=== PATIENT | male | born 1940 | race Caucasian/White ===

== ENCOUNTER 2019-07-04 17:39 | Observation (INO) | payer MEDICARE, OTHER ==
[2019-07-04] MEDS ORDERED: Metoprolol Tartrate 5 MG/5 ML SDV IVPUSH ONE (18:11)
[2019-07-04] MEDS ORDERED: Famotidine 20 MG/2 ML SDV IVPUSH ONE (18:11)
--- NOTE | 2019-07-04 18:11 | EDM.PDOC ---
ED HPI GENERAL MEDICAL PROBLEM - General Chief Complaint: General Stated Complaint: SYNCOPE, WEAKNESS Time Seen by Provider: 07/04/19 18:00 Source of Information: Reports: Patient, EMS, Family (Daughter), Old Records ( [facility] EMR. No paper hospital chart available.). Denies: EMS Notes Reviewed (Not available at time of dictation) History Limitations: Reports: No Limitations - History of Present Illness INITIAL COMMENTS - FREE TEXT/NARRATIVE: The patient was brought to the emergency room via ambulance with customer solutions architect accompaniment with heart monitor placed with no apparent arrhythmia noted. Note the patient did have a true syncopal episode at his daughter's home at about 17: 15 hours this afternoon while repairing a clogged drain. The patient got up from under the counter, felt dizzy, and then had a syncopal episode falling and hitting his front facial region on the refrigerator. There was some brief loss of consciousness and confusion for about 2 minutes with no true seizure activity , urine/stool incontinence, significant postictal sedation, etc. The patient denies any chest pain/pressure, heart flutter, orthopnea, diaphoresis, paresthesias, recent decreased exercise tolerance, or any other anginal-type symptoms. No recent history of abdominal pain, heartburn, nausea, diarrhea, melena, gross hematochezia, or any food intolerance, including fatty foods, etc.. He denies any gross hematuria, colic, or other UTI symptoms. The patient also denies any recent fever, cough, wheezing, dyspnea, etc.. No history of recent headaches, visual changes, diplopia, or other change in neurological status. He does complain of 4/10 posterior neck pain, which has improved since arrival. Onset: Today, Sudden Onset Date: 07/04/19 Onset Time: 17:15 Duration: Improving Location: Reports: Face, Neck. Denies: Chest, Abdomen, Back, Pelvis, Upper Extremity, Left, Upper Extremity, Right, Lower Extremity, Left, Lower Extremity , Right, Radiates to Quality: Reports: Ache Severity: Mild Improves with: Reports: None Worsens with: Reports: None Context: Reports: Trauma (As above) Associated Symptoms: Reports: Confusion (As above), Malaise, Syncope. 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 [No Known Home Meds] 10/02/15 [History] Past Medical History HEENT History: Reports: Cataract, Hard of Hearing, Impaired Vision, Other (See Below). Denies: Allergic Rhinitis, Glaucoma, Macular Degeneration, Otitis Media , Retinal Detachment Other HEENT History: He wears glasses. Beginning cataracts with no surgery to this point. Moderate to severe presbycusis with no current therapy. Cardiovascular History: Reports: Hypertension, Other (See Below). Denies: Afib , Aneurysm, Arrhythmia, Blood Clots/VTE/DVT, CAD, Heart Failure, Heart Murmur, High Cholesterol, MT, PVD, Syncope Other Cardiovascular History: Hypertension with no previous medical therapy to this point. Patient does not know his cholesterol status. Respiratory History: Reports: None. Denies: Asthma, Bronchitis, Recurrent, COPD , Intubation, Previous, PE, Pneumothorax, Sleep Apnea, TB Gastrointestinal History: Reports: Hepatitis, Other (See Below). Denies: Celiac Disease, Cholelithiasis, Chronic Constipation, Chronic Diarrhea, Fecal Incontinence, Gastritis, GERD, GI Bleed, Inflammatory Bowel Disease, Irritable Bowel Syndrome, Jaundice, Pancreatitis, PUD Other Gastrointestinal History: Unknown type of hepatitis with jaundice at about age 11 Genitourinary History: Reports: BPH. Denies: Acute Renal Failure, Chronic Renal Insuffiency, Renal Calculus, Retention, Urinary, STD, Urinary Incontinence Musculoskeletal History: Reports: Arthritis, Osteoarthritis. Denies: Amputation , Back Pain, Chronic, Fracture, Gout, Neck Pain, Chronic, RA, SLE Neurological History: Reports: None. Denies: Cerebral Aneurysms, Concussion, CVA, Headaches, Chronic, Head Trauma, Migraines, MS, Neuropathy, Peripheral, Parkinson's, Seizure, TIA, Vertigo Psychiatric History: Reports: None. Denies: Abuse, Victim of, ADD, ADHD, Addiction, Anxiety, Depression, Psych Hospitalization(s), PTSD, Suicide Attempt , Suicidal Ideation Endocrine/Metabolic History: Denies: Diabetes, Type I, Diabetes, Type II, Diabetes Mellitus, Type 3c, Hypothyroidism, IDDM Hematologic History: Reports: None. Denies: Anemia, Blood Transfusion(s), Iron Deficiency Immunologic History: Reports: None. Denies: AIDS, HIV, SLE Oncologic (Cancer) History: Denies: Basal Cell Carcinoma, Colon, Hodgkin's Lymphoma, Leukemia, Lymphoma, Malignant Melanoma, Non-Hodgkin's Lymphoma, Prostate, Squamous Cell Carcinoma Dermatologic History: Reports: None. Denies: Eczema, Psoriasis - Infectious Disease History Infectious Disease History: Reports: Measles, Mumps. Denies: C-Difficile, Chicken Pox, Meningitis, Mononucleosis, MRSA, Pertussis (Whooping Cough), Rheumatic Fever, Rubella, Scarlet Fever, Shingles, TB, VRE - Past Surgical History Head Surgeries/Procedures: Reports: None HEENT Surgical History: Reports: Oral Surgery, Other (See Below). Denies: Adenoidectomy, Cataract Surgery, Eye Surgery, Laser Surgery, LASIK, Myringotomy w Tube(s), Naso-Sinus Surgery, Tonsillectomy Other HEENT Surgeries/Procedures: Multiple teeth extractions Cardiovascular Surgical History: Denies: Varicose Respiratory Surgical History: Reports: None. Denies: Thoracentesis GI Surgical History: Reports: Hernia, Inguinal, Other (See Below). Denies: Appendectomy, Cholecystectomy, Colonoscopy, EGD, Hernia, Abdominal, Hernia Repair/Other Other GI Surgeries/Procedures: Left inguinal hernia repair in 2016. Male Surgical History: Reports: None. Denies: Circumcision, TURP- Transurethral Resection of Prostate, Vasectomy Endocrine Surgical History: Reports: None Neurological Surgical History: Reports: None. Denies: C-Spine, Discectomy, Laminectomy, Lumbar Spine, Sacral Spine, Spinal Fusion, Thoracic Spine Musculoskeletal Surgical History: Reports: None. Denies: Arthroscopic Procedure , Carpal Tunnel, Ganglion Cyst, Joint Replacement, ORIF, Shoulder Surgery Oncologic Surgical History: Reports: None Dermatological Surgical History: Reports: None Social & Family History - Family History HEENT: Reports: None. Denies: Glaucoma, Macular Degeneration, Retinal Detachment Cardiac: Reports: Hypertension, Other (See Below). Denies: Afib, Aneurysm, Arrhythmia, Blood Clots/VTE/DVT, Heart Failure, Heart Murmur, High Cholesterol, MT, Pacemaker, PVD/COD, Syncope Other Cardiac Family History: Sister with hypertension. Respiratory: Reports: COPD, Other (See Below). Denies: Asthma, PE, Pneumothorax , Sleep Apnea Other Respiratory Family Hisory: Father with fatal COPD at age 55 with history of tobacco use. GI: Reports: None. Denies: Celiac Disease, Cholelithiasis, Colon Polyps, GERD, GI bleed, Inflammatory Bowel Disease, Irritable Bowel Syndrome, PUD : Reports: None. Denies: Dialysis, Renal Calculus, Renal Disease/ Insufficiency OBGYN: Reports: None. Denies: Endometriosis, Recurrent Spontaneous Musculoskeletal: Reports: None. Denies: Arthritis, Gout, RA, SLE Neurological: Reports: CVA, Other (See Below). Denies: Alzheimers Disease, Dementia, Migraines, MS, Parkinson's, Seizure Other Neurological Family History: Mother with fatal CVA in her 70s. Sister with fatal CVA at age 63. Psychiatric: Denies: Abuse, Victim of, ADD, ADHD, Anxiety, Depression, Psych Hospitalization(s), PTSD, Suicide Attempt Endocrine/Metabolic: Reports: None. Denies: Diabetes, Type I, Diabetes, type II , Diabetes Mellitus, Type 3c, Hypothyroidism, IDDM Hematologic: Reports: None. Denies: Anemia Immunologic: Reports: None. Denies: AIDS, HIV, SLE Dermatologic: Reports: None. Denies: Eczema, Psoriasis Oncologic: Denies: Colon, Hodgkin's Lymphoma, Leukemia, Lymphoma, Non-Hodgkin's Lymphoma, Prostate, Skin - Tobacco Use Smoking Status *Q: Former Smoker Tobacco Use Within Last Twelve Months: No Years of Tobacco use: 13 Packs/Tins Daily: 1 (Smoked between ages 32 and 19.) Used Tobacco, but Quit: Yes Smoking Cessation Information Provided To Patient: No Second Hand Smoke Exposure: No Second Hand Smoke Education Provided: No - Caffeine Use Caffeine Use: Reports: Soda (1 soda per day), Tea (Occasional). Denies: Coffee , Energy Drinks - Alcohol Use Alcohol Use History: No Days Per Week of Alcohol Use: 0 Number of Drinks Per Day: 0 Number of Drinks Per Day Comment: No previous DWIs, problems with alcohol abuse , etc. 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 ED EXAM, GENERAL - Physical Exam Exam: See Below Exam Limited By: No Limitations General Appearance: Alert, WD/WN, No Apparent Distress, Anxious Eye Exam: Bilateral Eye: EOMI, Normal Fundi, Normal Inspection (No nystagmus), PERRL Ears: Normal External Exam, Normal Canal, Normal TMs, Hearing Loss (Moderate to severe bilateral presbycusis) Nose: Normal Inspection, Normal Mucosa, No Blood Throat/Mouth: Normal Gums, Normal Oropharynx, Normal Voice, No Airway Compromise , Other (0.5 cm superficial laceration over the mid superior right lip). No: Normal Teeth (Multiple missing teeth with right lower premolar extraction site noted with additional moderate caries and broken tooth including left upper incisor. No evidence of acute dental injury.), Dysphagia, Inflammation, Perioral Cyanosis Head: Other (No evidence of facial already, crepitation, swelling, or sign of fracture. There are 0.25 superficial abrasion over the lateral right eyebrow). No: Facial Swelling, Facial Tenderness, Sinus Tenderness Neck: Supple, Non-Tender, Full Range of Motion, Carotid Bruit (Bilateral carotid bruits), Other (No neck tenderness by palpation with no spasms present) . No: Lymphadenopathy (L), Lymphadenopathy (R), Tender Lateral, Tender Midline , Thyromegaly Respiratory/Chest: No Respiratory Distress, Lungs Clear, Normal Breath Sounds, No Accessory Muscle Use, Chest Non-Tender. No: Pleural Rub, Retractions Cardiovascular: Normal Peripheral Pulses, No Edema, No Gallop, No JVD, No Murmur , No Rub, Tachycardia (Tachycardic, regular rhythm). No: Gallop/S3, Gallop/S4, Friction Rub Peripheral Pulses: 2+: Radial (L), Radial (R), Dorsalis Pedis (L), Dorsalis Pedis (R) GI/Abdominal: Normal Bowel Sounds, Soft, Non-Tender, No Organomegaly, No Distention, No Abnormal Bruit, No Mass, Pelvis Stable. No: Guarding (Male) Exam: Deferred Rectal (Males) Exam: Deferred Back Exam: Normal Inspection, Full Range of Motion. No: CVA Tenderness (L), CVA Tenderness (R), Muscle Spasm Extremities: Normal Inspection, Normal Range of Motion, Non-Tender, No Pedal Edema, Normal Capillary Refill. No: Matilde's Sign Neurological: Alert, Oriented, CN II-XII Intact, Normal Cognition, Normal Gait, Normal Reflexes (Negative Babinski's, finger to nose, and pronator rotation tests. No evidence of facial paresis, tongue deviation, orthostasis, etc.. Excellent reverse thought processes.), No Motor/Sensory Deficits Psychiatric: Normal Affect, Normal Mood Skin Exam: Wound/Incision (As above additional superficial 0.25 cm abrasion/ laceration over the mid outer superior right lip). No: Diaphoretic, Ecchymosis Lymphatic: No Adenopathy ED GENERAL MEDICAL PROCEDURES - Laceration/Wound Repair Right Upper Mouth Lac/wound length in cm: 0.5 Appearance: Subcutaneous, Linear, Clean Distal NVT: Neuro & Vascular Intact, No Tendon Injury Anesthetic Type: Local Local Anesthesia - Lidocaine (Xylocaine): 1% Plain Local Anesthetic Volume: 3cc Skin Prep: Providone-Iodine (Betadine) Saline irrigation (cc's): 0 Exploration/Debridement/Repair: Wound Explored, In a Bloodless Field, Explored to Base, No Foreign Material Found Closed with: Sutures Suture Size: 4-0 # of Sutures: 2 Suture Type: Interrupted, Simple, Other (Chromic) Drain Placement: No Sterile Dressing Applied: None Tetanus Status Addressed: Yes Complications: No EKG INTERPRETATION EKG Date: 07/04/19 Time: 17:52 Rhythm: Other (Sinus tachycardia with occasional PACs) Rate (Beats/Min): 115 [place]: Normal (Left cardiac axis) P-Wave: Present (Mild diffuse biphasic P waves with poor R-wave progression in the anterior leads) QRS: Normal (0.09 seconds) ST-T: Normal QT: Normal MS/PQ Interval: 0.13 seconds representing a short MS interval with no delta waves noted. Comparison: NA - No Prior EKG EKG Interpretation Comments: 1. No acute ischemic changes 2. Sinus tachycardia with PACs 3. Short MS interval Course - Vital Signs Last Recorded V/S: Last Vital Signs Temp 36.8 C 07/04/19 17:40 Pulse 91 07/04/19 20:31 Resp 19 07/04/19 20:31 BP 147/83 H 07/04/19 20:31 Pulse Ox 96 07/04/19 20:31 Vital Signs - 24 hr 07/04/19 07/04/19 07/04/19 17:40 17:54 18:09 Temperature [ 36.8 C Temporal] Pulse, Peripheral Pulse, 118 H 112 H 107 H Peripheral [ Pulse Oximetry] Respiratory 19 21 H 20 Rate Blood Pressure Blood Pressure 137/81 137/84 145/78 H [Right Upper Arm] O2 Sat by Pulse 100 98 99 Oximetry 07/04/19 07/04/19 07/04/19 18:24 18:25 18:39 Temperature [ Temporal] Pulse, 102 H Peripheral Pulse, 109 H 90 Peripheral [ Pulse Oximetry] Respiratory 19 19 Rate Blood Pressure 145/78 H Blood Pressure 157/90 H 154/90 H [Right Upper Arm] O2 Sat by Pulse 99 99 Oximetry 07/04/19 07/04/19 07/04/19 18:58 19:45 20:01 Temperature [ Temporal] Pulse, Peripheral Pulse, 89 85 87 Peripheral [ Pulse Oximetry] Respiratory 16 19 21 H Rate Blood Pressure Blood Pressure 149/87 H 144/84 H 151/94 H [Right Upper Arm] O2 Sat by Pulse 98 99 96 Oximetry 07/04/19 07/04/19 20:16 20:31 Temperature [ Temporal] Pulse, Peripheral Pulse, 82 91 Peripheral [ Pulse Oximetry] Respiratory 18 19 Rate Blood Pressure Blood Pressure 150/86 H 147/83 H [Right Upper Arm] O2 Sat by Pulse 97 96 Oximetry - Orders/Labs/Meds Orders: Active Orders 24 hr Category Date Time Status Cardiac Monitoring [RC] . DIRECTED Care 07/04/19 18:11 Active EKG Documentation Completion [RC] ASDIRECTED Care 07/04/19 18:00 Active Oxygen Therapy, ED [RC] PRN Care 07/04/19 18:11 Active Peripheral IV Care [RC] . DIRECTED Care 07/04/19 18:11 Active Pulse Oximetry [RC] CONTINUOUS Care 07/04/19 18:11 Active Up With Assistance [RC] PFP Care 07/04/19 18:11 Active Vital Signs [RC] PFP Care 07/04/19 18:11 Active Nothing per Oral Now Diet [DIET] Diet 07/04/19 Breakfast Active Cervical Spine Min 4V [CR] Stat Exams 07/04/19 18:50 Taken Chest 1V Frontal [CR] Stat Exams 07/04/19 18:11 Taken Chest PE [Ang Chest] [CT] Stat Exams 07/04/19 18:50 Taken Head wo Cont [CT] Stat Exams 07/04/19 18:50 Taken PROLACTIN [REF] Stat Lab 07/04/19 18:13 Ordered Sodium Chloride 0.9% [Saline Flush] Med 07/04/19 18:11 Active 10 ml FLUSH ASDIRECTED PRN Obtain Past Medical Record [OM.PC] Urgent Oth 07/04/19 18:11 Active Peripheral IV Insertion Adult [OM.PC] Stat Oth 07/04/19 18:11 Ordered Resuscitation Status Stat Resus Stat 07/04/19 18:11 Ordered Medication Orders Sodium Chloride (Saline Flush) 10 ml FLUSH ASDIRECTED PRN PRN Reason: Keep Vein Open Last Admin: 07/04/19 18:39 Dose: 10 ml Admin: 07/04/19 18:26 Dose: 10 ml Labs: Laboratory Tests 07/04/19 07/04/19 07/04/19 Range/Units 18:00 18:00 18:00 WBC 11.3 H (4.0-10.2) K/uL RBC 4.53 (4.33-5.41) M/uL Hgb 13.9 (13.1-16.8) g/dL Hct 41.9 (39.0-49.0) % MCV 92.5 (84.0-98.0) fL MCH 30.7 (28.2-33.3) pg MCHC 33.2 (31.7-36.0) g/dL RDW 12.9 (11.2-14.1) % Plt Count 247 (150-350) K/uL Neut % (Auto) 76.6 (45.0-80.0) % Lymph % (Auto) 13.5 (10.0-50.0) % [place] % (Auto) 8.2 (2.0-14.0) % Eos % (Auto) 1.3 (0.0-5.0) % Baso % (Auto) 0.4 (0.0-2.0) % Neut # (Auto) 8.65 H (1.40-7.00) K/uL Lymph # (Auto) 1.52 (0.50-3.50) K/uL [place] # (Auto) 0.93 (0.00-1.00) K/uL Eos # (Auto) 0.15 (0.00-0.50) K/uL Baso # (Auto) 0.04 (0.00-0.20) K/uL PT 10.3 (9.5-12.0) SEC INR 1.0 APTT 19.0 L (21.0-31.3) SEC D-Dimer, Quantitative 1370 H (0-400) ng/mL Sodium (136-145) mmol/L Potassium (3.5-5.1) mmol/L Chloride (98-107) mmol/L Carbon Dioxide (21.0-32.0) mmol/L BUN (7-18) mg/dL Creatinine (0.51-1.17) mg/dL Est Cr Clr Drug Dosing mL/min Estimated GFR (MDRD) mL/min Glucose (74-106) mg/dL Lactic Acid (0.4-2.0) mmol/L Uric Acid (2.6-7.2) mg/dL Calcium (8.5-10.1) mg/dL Magnesium (1.8-2.4) mg/dL Total Bilirubin (0.2-1.0) mg/dL AST (15-37) U/L ALT (12-78) U/L Alkaline Phosphatase (46-116) IU/L Creatine Kinase (26-308) U/L Creatine Kinase Index (0.0-2.5) % CK-MB (CK-2) (0.00-3.60) ng/mL Troponin I (0.000-0.056) ng/mL NT-Pro-B Natriuret Pep (0-125) pg/mL Total Protein (6.4-8.2) g/dL Albumin (3.4-5.0) g/dL TSH, Ultra Sensitive (0.358-3.740) mIU/mL 07/04/19 07/04/19 Range/Units 18:00 18:00 WBC (4.0-10.2) K/uL RBC (4.33-5.41) M/uL Hgb (13.1-16.8) g/dL Hct (39.0-49.0) % MCV (84.0-98.0) fL MCH (28.2-33.3) pg MCHC (31.7-36.0) g/dL RDW (11.2-14.1) % Plt Count (150-350) K/uL Neut % (Auto) (45.0-80.0) % Lymph % (Auto) (10.0-50.0) % [place] % (Auto) (2.0-14.0) % Eos % (Auto) (0.0-5.0) % Baso % (Auto) (0.0-2.0) % Neut # (Auto) (1.40-7.00) K/uL Lymph # (Auto) (0.50-3.50) K/uL [place] # (Auto) (0.00-1.00) K/uL Eos # (Auto) (0.00-0.50) K/uL Baso # (Auto) (0.00-0.20) K/uL PT (9.5-12.0) SEC INR APTT (21.0-31.3) SEC D-Dimer, Quantitative (0-400) ng/mL Sodium 145 (136-145) mmol/L Potassium 3.6 (3.5-5.1) mmol/L Chloride 109 H (98-107) mmol/L Carbon Dioxide 23.5 (21.0-32.0) mmol/L BUN 21 H (7-18) mg/dL Creatinine 1.21 H (0.51-1.17) mg/dL Est Cr Clr Drug Dosing 51.13 mL/min Estimated GFR (MDRD) 58 mL/min Glucose 116 H (74-106) mg/dL Lactic Acid 2.0 (0.4-2.0) mmol/L Uric Acid 5.2 (2.6-7.2) mg/dL Calcium 8.8 (8.5-10.1) mg/dL Magnesium 1.6 L (1.8-2.4) mg/dL Total Bilirubin 0.3 (0.2-1.0) mg/dL AST 22 (15-37) U/L ALT 20 (12-78) U/L Alkaline Phosphatase 144 H (46-116) IU/L Creatine Kinase 236 (26-308) U/L Creatine Kinase Index 0.8 (0.0-2.5) % CK-MB (CK-2) 1.90 (0.00-3.60) ng/mL Troponin I 0.020 (0.000-0.056) ng/mL NT-Pro-B Natriuret Pep 338 H (0-125) pg/mL Total Protein 7.2 (6.4-8.2) g/dL Albumin 3.6 (3.4-5.0) g/dL TSH, Ultra Sensitive 2.895 (0.358-3.740) mIU/mL Meds: Medications Generic Name Dose Route Start Last Admin Trade Name Freq PRN Reason Stop Dose Admin Sodium Chloride 10 ml 07/04/19 18:11 07/04/19 18:39 Saline Flush FLUSH 10 ml ASDIRECTED PRN Administration Keep Vein Open Discontinued Medications Generic Name Dose Route Start Last Admin Trade Name Freq PRN Reason Stop Dose Admin Famotidine 40 mg 07/04/19 18:11 07/04/19 18:25 Pepcid IVPUSH 07/04/19 18:12 40 mg ONETIME ONE Administration Iopamidol 100 ml 07/04/19 18:58 07/04/19 19:57 Isovue-370 (76%) IVPUSH 07/04/19 18:59 100 ml ONETIME ONE Administration Lidocaine HCl 5 ml 07/04/19 18:15 07/04/19 18:24 Xylocaine-Mpf 1% INJECT 07/04/19 18:16 5 ml ONETIME ONE Administration Metoprolol Tartrate 2.5 mg 07/04/19 18:11 07/04/19 18:25 Lopressor IVPUSH 07/04/19 18:12 2.5 mg ONETIME ONE Administration - Radiology Interpretation Free Text/Narrative:: Hvac Estimator shows sinus tachycardia with heart rate in the 110s with only very occasional PACs with improved heart rate in the 80s to 90s after low-dose IV Lopressor with no other significant ectopy or arrhythmia. Chest x-ray shows moderate pulmonary obstructive disease with possible pulmonary hypertension and/or centralized CHF. No pulmonary infiltrates, cardiomegaly, pneumothorax, rib fractures, etc. X-rays of the C-spine, complete including oblique views, shows moderate osteoarthritic changes with no evidence of fracture, dislocation, etc. Telephone consultation at 20:36 hours with the radiology department at [facility]. Preliminary verbal report of CTA of the chest using PE protocol with additional noncontrast CT scan of the head were negative for any acute findings including PE, CVA, etc. CT Results Date: 07/04/19 CT Results Time: 20:36 Departure - Departure Time of Disposition: 21:00 Disposition: Refer to Observation Condition: Good Clinical Impression: PAC (premature atrial contraction), D-dimer, elevated, Hypomagnesemia, Neck pain, Laceration, Renal insufficiency, BPH (benign prostatic hyperplasia) Facial contusion Qualifiers: Encounter type: initial encounter Qualified Code(s): S00.83XA - Contusion of other part of head, initial encounter Syncope Qualifiers: Syncope type: unspecified Qualified Code(s): R55 - Syncope and collapse Hypertension Qualifiers: Hypertension type: essential hypertension Qualified Code(s): I10 - Essential ( primary) hypertension Osteoarthritis Qualifiers: Osteoarthritis location: multiple joints Osteoarthritis type: primary Qualified Code(s): M15.0 - Primary generalized (osteo)arthritis - Discharge Information *PRESCRIPTION DRUG MONITORING PROGRAM REVIEWED*: Not Applicable *COPY OF PRESCRIPTION DRUG MONITORING REPORT IN PATIENT ROSA MARIA: Not Applicable Referrals: PCP,None [Primary Care Provider] - Forms: ED Department Discharge Care Plan Goals: See plan Sepsis Event Note - Evaluation Sepsis Screening Result: No Definite Risk - Focused Exam Vital Signs: Vital Signs Temp Pulse Pulse Resp BP BP Pulse Ox 07/04/19 20:31 91 19 147/83 H 96 07/04/19 20:16 82 18 150/86 H 97 07/04/19 20:01 87 21 H 151/94 H 96 07/04/19 19:45 85 19 144/84 H 99 07/04/19 18:58 89 16 149/87 H 98 07/04/19 18:39 90 19 154/90 H 99 07/04/19 18:25 102 H 145/78 H 07/04/19 18:24 109 H 19 157/90 H 99 07/04/19 18:09 107 H 20 145/78 H 99 07/04/19 17:54 112 H 21 H 137/84 98 07/04/19 17:40 36.8 C 118 H 19 137/81 100 Date Exam was Performed: 07/04/19 Time Exam was Performed: 21:02 - Problem List & Annotations (1) Syncope SNOMED Code(s): 986854463 Code(s): R55 - SYNCOPE AND COLLAPSE Status: Acute Priority: High Current Visit: Yes Onset Date: 07/04/19 Annotation/Comment:: True witnessed syncopal episode by his daughter as above. No chest pain or anginal type symptoms, however chest pain protocol was initiated in the emergency room with exception of aspirin and Brilinta. Neurological checks with vitals. Echocardiogram and carotid artery Doppler studies will be conducted tomorrow with mild carotid bruits by clinical exam today. Note mildly elevated BNP possibly secondary to renal insufficiency. Take enzymes are otherwise normal with only minimal change in troponin I likely secondary to his renal disease and /or borderline CHF. Mild leukocytosis likely secondary to stress reaction with no recent fever, cough, etc. Qualifiers: Syncope type: unspecified Qualified Code(s): R55 - Syncope and collapse (2) D-dimer, elevated SNOMED Code(s): 384916245 Code(s): R79.89 - OTHER SPECIFIED ABNORMAL FINDINGS OF BLOOD CHEMISTRY Status: Acute Priority: High Current Visit: Yes Onset Date: 07/04/19 Annotation/Comment:: CTA of the chest results as above. Venous Doppler studies to be conducted in the a.m. ET of the head was normal, however no subcutaneous Lovenox for now secondary to head contusion/injury as above. No direct clinical evidence of DVT or PE, however. (3) Facial contusion SNOMED Code(s): 632439986 Code(s): S00.83XA - CONTUSION OF OTHER PART OF HEAD, INITIAL ENCOUNTER Status: Acute Priority: High Current Visit: Yes Onset Date: 07/04/19 Annotation/Comment:: Note mild facial contusion with no evidence of facial fractures, etc. Note small lacerations as above/below with only inner lip laceration requiring repair. Qualifiers: Encounter type: initial encounter Qualified Code(s): S00.83XA - Contusion of other part of head, initial encounter (4) Hypertension SNOMED Code(s): 07042036 Code(s): I10 - ESSENTIAL (PRIMARY) HYPERTENSION Status: Chronic Priority : Medium Current Visit: Yes Annotation/Comment:: Patient has not wanted to have medical therapy for his hypertension in the past. Blood pressure somewhat elevated in the emergency room. Initiate low-dose Toprol XL on admission. IV Lopressor given in the emergency room. Qualifiers: Hypertension type: essential hypertension Qualified Code(s): I10 - Essential (primary) hypertension (5) Hypomagnesemia SNOMED Code(s): 008935048 Code(s): E83.42 - HYPOMAGNESEMIA Status: Acute Priority: Medium Current Visit: Yes Onset Date: 07/04/19 Annotation/Comment:: Initiate magnesium oxide therapy on admission (6) PAC (premature atrial contraction) SNOMED Code(s): 055051457 Code(s): I49.1 - ATRIAL PREMATURE DEPOLARIZATION Status: Acute Priority: High Current Visit: Yes Onset Date: 07/04/19 Annotation/Comment:: Newly diagnosed PACs and sinus tachycardia with overall good results with low-dose IV Lopressor as above. Observe for now. (7) Laceration SNOMED Code(s): 388374604 Code(s): BGZ5199 - Status: Acute Priority: High Current Visit: Yes Onset Date: 07/04/19 Annotation/Comment:: Excellent results with laceration repair of the inner lip as above. Last Td on 12/25/10, which was confirmed by the ER nurse thru [facility]. (8) Neck pain SNOMED Code(s): 95366017 Code(s): M54.2 - CERVICALGIA Status: Acute Priority: High Current Visit : Yes Onset Date: 07/04/19 Annotation/Comment:: Symptoms improved with ice packs and emergency room. Observe for now. Note x-ray results as above. No evidence of significant injury. (9) Osteoarthritis SNOMED Code(s): 549431445 Code(s): M19.90 - UNSPECIFIED OSTEOARTHRITIS, UNSPECIFIED SITE Status: Chronic Priority: Medium Current Visit: Yes Annotation/Comment:: Otherwise stable by history with OTC meds not normally required. Qualifiers: Osteoarthritis location: multiple joints Osteoarthritis type: primary Qualified Code(s): M15.0 - Primary generalized (osteo)arthritis (10) Renal insufficiency SNOMED Code(s): 162211271, 903550488 Code(s): N28.9 - DISORDER OF KIDNEY AND URETER, UNSPECIFIED Status: Acute Priority: Medium Current Visit: Yes Onset Date: 07/04/19 Annotation/ Comment:: Mild. Observe for now. (11) BPH (benign prostatic hyperplasia) SNOMED Code(s): 649193756 Code(s): N40.0 - BENIGN PROSTATIC HYPERPLASIA WITHOUT LOWER URINRY TRACT SYMP Status: Chronic Priority: Medium Current Visit: Yes Annotation/ Comment:: He denies urinary retention although significant urine frequency in the emergency room today. UA collected just prior to admission. Consider urology referral, Proscar therapy, etc. Qualifiers: Lower urinary tract symptom presence: symptoms present Lower urinary tract symptom detail: urinary frequency Qualified Code(s): N40.1 - Benign prostatic hyperplasia with lower urinary tract symptoms; R35.0 - Frequency of micturition - Problem List Review Problem List Initiated/Reviewed/Updated: Yes - My Orders Last 24 Hours: My Active Orders 07/04/19 18:00 EKG Documentation Completion [RC] ASDIRECTED 07/04/19 18:11 Cardiac Monitoring [RC] . DIRECTED Oxygen Therapy, ED [RC] PRN Peripheral IV Care [RC] . DIRECTED Pulse Oximetry [RC] CONTINUOUS Up With Assistance [RC] PFP Vital Signs [RC] PFP Chest 1V Frontal [CR] Stat Sodium Chloride 0.9% [Saline Flush] 10 ml FLUSH ASDIRECTED PRN Obtain Past Medical Record [OM.PC] Urgent Peripheral IV Insertion Adult [OM.PC] Stat Resuscitation Status Stat 07/04/19 18:13 PROLACTIN [REF] Stat 07/04/19 18:50 Cervical Spine Min 4V [CR] Stat Chest PE [Ang Chest] [CT] Stat Head wo Cont [CT] Stat 07/04/19 Breakfast Nothing per Oral Now Diet [DIET] - Assessment/Plan Admission H&P: Please use this note as an admission H&P Last 24 Hours: My Active Orders 07/04/19 18:00 EKG Documentation Completion [RC] ASDIRECTED 07/04/19 18:11 Cardiac Monitoring [RC] . DIRECTED Oxygen Therapy, ED [RC] PRN Peripheral IV Care [RC] . DIRECTED Pulse Oximetry [RC] CONTINUOUS Up With Assistance [RC] PFP Vital Signs [RC] PFP Chest 1V Frontal [CR] Stat Sodium Chloride 0.9% [Saline Flush] 10 ml FLUSH ASDIRECTED PRN Obtain Past Medical Record [OM.PC] Urgent Peripheral IV Insertion Adult [OM.PC] Stat Resuscitation Status Stat 07/04/19 18:13 PROLACTIN [REF] Stat 07/04/19 18:50 Cervical Spine Min 4V [CR] Stat Chest PE [Ang Chest] [CT] Stat Head wo Cont [CT] Stat 07/04/19 Breakfast Nothing per Oral Now Diet [DIET] Assessment:: As above. Plan: As above. Extensive precautions were given to the patient and his family, who are in agreement with the treatment plan. The patient's condition is stable enough for observation status and general supervision.
[2019-07-04] MEDS: Sodium Chloride 0.9% 10 ML Syringe FLUSH PRN ×2 (18:26→18:39)
[2019-07-04] MEDS ORDERED: Iopamidol 755 Mg/ML 100 ML Bottle IVPUSH ONE (18:58)
[2019-07-04] MEDS ORDERED: Temazepam 15 MG Cap PO PRN (21:08)
[2019-07-04] MEDS ORDERED: Acetaminophen 325 MG Tab PO PRN (21:08)
[2019-07-04] MEDS ORDERED: Sodium Chloride 0.9% 10 ML Syringe FLUSH PRN (21:08)
[2019-07-04] MEDS ORDERED: Metoprolol Succinate 25 MG Tab.ER PO SCH (21:14)
[2019-07-04] MEDS ORDERED: Magnesium Oxide 400 MG Tab PO SCH (21:15)
[2019-07-04] MEDS ORDERED: Diphtheria,Pertussis(Acell),Tetanus Vaccine 0.5 ML SDV IM ONE (21:27)
[2019-07-04] MEDS ORDERED: Pneumococcal Polyvalent-23 Vaccine 0.5 ML SDV IM ONE (21:27)
[2019-07-04] MEDS ORDERED: Enoxaparin 80 MG/0.8 ML Syringe SUBCUT SCH (23:30)
[2019-07-05 07:45] LABS: HEMOGLOBIN A1C 5.4 % (4.3-5.7)
[2019-07-05 08:17] LABS: CHLORIDE,CL 110 mmol/L (98-107); SODIUM,NA 145 mmol/L (136-145)
[2019-07-05 09:31] VITALS: BP 150/88; PULSE 67
[2019-07-05] MEDS ORDERED: Furosemide 40 MG/4 ML VIAL IVPUSH ONE (09:50)
--- NOTE | 2019-07-05 09:50 | PCM.DCSUM1 ---
Discharge Summary - Hospital Course HPI Initial Comments: See emergency room note/admission H&P Brief History: See emergency room note/admission H&P Diagnosis: Stroke: No Modified [place] Scale: No Symptoms at All Modified [place] Scale Score: 0 - Discharge Data Discharge Date: 07/05/19 Discharge Disposition: DC/Tfer to Acute Hospital 02 Condition: Good - Referral to Home Health Primary Care Physician: PCP None - Discharge Diagnosis/Problem(s) (1) Syncope SNOMED Code(s): 195914340 ICD Code: R55 - SYNCOPE AND COLLAPSE Status: Acute Priority: High Current Visit: Yes Onset Date: 07/04/19 Problem Details: Note elevated troponin I and CK yesterday evening with normal CK-MB and cardiac index. Patient has not had any chest pain or other anginal type symptoms throughout this hospitalization with negative serial EKGs 3. Note improvement of patient' s d-dimer elevation and troponin I with initiation of subcutaneous Lovenox yesterday evening. Telephone consultation at 09:20 hours this morning with Dr. Solis, environmental sampling technician at [facility], , who does accept the patient for direct admission through the hospitalist service for further treatment and evaluation and probable heart catheterization tomorrow. Telephone consultation at 09:[address] Teixeira, hospitalist at [facility], who does accept the patient for direct admission. No further treatment recommendations given by either accepting providers. Ambulance transfer with [employer]. Note witnessed syncopal episode by his daughter as per emergency room note. No chest pain or anginal type symptoms prior to arrival, however chest pain protocol was initiated in the emergency room with exception of aspirin and Brilinta. Neurological checks with vitals. Echocardiogram this morning was essentially normal by preliminary read from erp technical lead. Carotid artery Doppler had been scheduled for today with mild carotid bruits by clinical exam on admission, however this could not be performed prior to patient 's transfer. Note progressive moderately elevated BNP with only mild initial BNP elevation possibly secondary to renal insufficiency, although normal renal function this morning. Mild leukocytosis likely secondary to stress reaction on admission, which has resolved this morning, with no recent fever, cough, etc. Note the glycosylated hemoglobin and fasting lipid profile were normal this morning. Qualifiers: Syncope type: unspecified Qualified Code(s): R55 - Syncope and collapse (2) D-dimer, elevated SNOMED Code(s): 181674111 ICD Code: R79.89 - OTHER SPECIFIED ABNORMAL FINDINGS OF BLOOD CHEMISTRY Status: Acute Priority: High Current Visit: Yes Onset Date: 07/04/19 Problem Details: D-dimer elevation improved this morning after subcutaneous Lovenox therapy was given as above. CTA of the chest results were negative for PE. Venous Doppler studies of the lower extremities were also ordered for today , however these could not be conducted prior to patient transfer. CT of the head was normal on admission, however no subcutaneous Lovenox was given initially secondary to head contusion/injury as above. No direct clinical evidence of DVT or PE, however. (3) Facial contusion SNOMED Code(s): 153213132 ICD Code: S00.83XA - CONTUSION OF OTHER PART OF HEAD, INITIAL ENCOUNTER Status: Acute Priority: High Current Visit: Yes Onset Date: 07/04/19 Problem Details: Note mild facial contusion with no evidence of facial fractures , etc. Note small lacerations as above/below with only inner lip laceration requiring repair. Note progressive CK elevation, however no direct evidence of rhabdomyolysis. Qualifiers: Encounter type: initial encounter Qualified Code(s): S00.83XA - Contusion of other part of head, initial encounter (4) Hypertension SNOMED Code(s): 28931643 ICD Code: I10 - ESSENTIAL (PRIMARY) HYPERTENSION Status: Chronic Priority : Medium Current Visit: Yes Problem Details: Patient has not wanted to have medical therapy for his hypertension in the past. Blood pressure somewhat elevated in the emergency room. Initiated low-dose Toprol XL on admission. IV Lopressor was given in the emergency room. Qualifiers: Hypertension type: essential hypertension Qualified Code(s): I10 - Essential (primary) hypertension (5) Hypomagnesemia SNOMED Code(s): 489519115 ICD Code: E83.42 - HYPOMAGNESEMIA Status: Acute Priority: Medium Current Visit: Yes Onset Date: 07/04/19 Problem Details: Initiated magnesium oxide therapy on admission. Continue to observe closely by accepting providers. (6) PAC (premature atrial contraction) SNOMED Code(s): 998664405 ICD Code: I49.1 - ATRIAL PREMATURE DEPOLARIZATION Status: Acute Priority : High Current Visit: Yes Onset Date: 07/04/19 Problem Details: Newly diagnosed PACs and sinus tachycardia with overall good results with low-dose IV Lopressor as above. Observe for now. (7) Laceration SNOMED Code(s): 892666217 ICD Code: CVM4495 - Status: Acute Priority: High Current Visit: Yes Onset Date: 07/04/19 Problem Details: Excellent results with laceration repair of the inner lip as above. Last Td on 12/25/10, which was confirmed by the ER nurse thru [facility]. (8) Neck pain SNOMED Code(s): 05058244 ICD Code: M54.2 - CERVICALGIA Status: Acute Priority: High Current Visit: Yes Onset Date: 07/04/19 Problem Details: Symptoms improved with ice packs and emergency room. Observe for now. Note x-ray results as above. No evidence of significant injury. (9) Osteoarthritis SNOMED Code(s): 872549021 ICD Code: M19.90 - UNSPECIFIED OSTEOARTHRITIS, UNSPECIFIED SITE Status: Chronic Priority: Medium Current Visit: Yes Problem Details: Otherwise stable by history with OTC meds not normally required. Qualifiers: Osteoarthritis location: multiple joints Osteoarthritis type: primary Qualified Code(s): M15.0 - Primary generalized (osteo)arthritis (10) Renal insufficiency SNOMED Code(s): 167791249, 880175025 ICD Code: N28.9 - DISORDER OF KIDNEY AND URETER, UNSPECIFIED Status: Acute Priority: Medium Current Visit: Yes Onset Date: 07/04/19 Problem Details: Mild renal insufficiency on admission, however normal creatinine level this morning.. Observe closely by accepting providers secondary to IV Lasix given prior to patient's discharge/transfer. (11) BPH (benign prostatic hyperplasia) SNOMED Code(s): 705930956 ICD Code: N40.0 - BENIGN PROSTATIC HYPERPLASIA WITHOUT LOWER URINRY TRACT SYMP Status: Chronic Priority: Medium Current Visit: Yes Problem Details : He denies urinary retention although significant urine frequency in the emergency room today. UA collected showed no evidence of acute infection with urine specimen set up for culture and sensitivity. Consider urology referral, Proscar therapy, etc. Qualifiers: Lower urinary tract symptom presence: symptoms present Lower urinary tract symptom detail: urinary frequency Qualified Code(s): N40.1 - Benign prostatic hyperplasia with lower urinary tract symptoms; R35.0 - Frequency of micturition (12) Hypoalbuminemia SNOMED Code(s): 543441819 ICD Code: E88.09 - OTH DISORDERS OF PLASMA-PROTEIN METABOLISM, NEC Status: Acute Priority: Medium Current Visit: Yes Onset Date: 07/05/19 Problem Details: Observe for now. - Patient Summary/Data Operative Procedure(s) Performed: None Complications: None Consults: Mail Teller and hospitalist consultations as above. Labs Pending at D/C: 1. Final echocardiogram report from 07/05/19 2. Urine culture and sensitivity results 3. Prolactin level 4. Final report of CT scan of the head without contrast. Recommended Follow-up Testing/Procedures: As above. Patient may also benefit from a screening colonoscopy and further update of his yearly preventative healthcare after his cardiac status has been determined. Planned Operative Procedure(s) after DC: As above Hospital Course: The patient was placed in observation status on telemetry with initiation of standard rule out OK orders as above. Neurological checks were stable throughout this hospitalization with no evidence of recurrence of the patient, significant arrhythmia, or signs of any seizure activity. Otherwise hospital course as above with no further complications. - Patient Instructions Diet: Fluid Restriction Diet, Other: Healthy, diverticulosis Fluid Restriction: 1800 ml Activity: Bedrest Driving: Do Not Drive Showering/Bathing: May Shower Notify Provider of: Increased Pain, Nausea and/or Vomiting - Discharge Plan *PRESCRIPTION DRUG MONITORING PROGRAM REVIEWED*: Not Applicable *COPY OF PRESCRIPTION DRUG MONITORING REPORT IN PATIENT ROSA MARIA: Not Applicable Home Medications: Home Meds . [No Known Home Meds] 10/02/15 [History] Oxygen Therapy Mode: Room Air Forms: ED Department Discharge, Interfacility Transfer EMTALA Referrals: PCP,None [Primary Care Provider] - - Discharge Summary/Plan Comment DC Time >30 min.: Yes (Coordination of care ) Discharge Summary/Plan Comment: As above. Extensive precautions were given to the patient and his family, who are in agreement with the treatment plan. Ambulance transfer with sales executive insurance accompaniment. - General Info Date of Service: 07/05/19 Admission Dx/Problem (Free Text: 1. Syncope 2. Facial contusion 3. Laceration Functional Status: Reports: Pain Controlled, Tolerating Diet, Ambulating, Urinating. Denies: New Symptoms, Incentive Spirometry Numeric/FACES Score: 0 - Review of Systems General: Reports: No Symptoms. Denies: Fever, Weakness, Fatigue, Malaise, Chills, Night Sweats, Appetite (Good) HEENT: Denies: Dysphasia, Ear Pain, Headaches, Post Nasal Drip, Sinus Congestion , Rhinitis, Visual Changes Pulmonary: Reports: No Symptoms. Denies: Shortness of Breath, Pleuritic Chest Pain, Cough, Sputum, Wheezing Cardiovascular: Reports: No Symptoms. Denies: Chest Pain, Palpitations, Dyspnea on Exertion, Orthopnea, Edema, Lightheadedness Gastrointestinal: Reports: No Symptoms. Denies: Abdominal Pain, Constipation, Decreased Appetite, Diarrhea, Difficulty Swallowing, Flatus, Hematochezia, Melena, Nausea, Vomiting Genitourinary: Reports: Frequency, Retention (Borderline). Denies: Dysuria, Burning, Pain, Urgency, Incontinence, Hematuria, Flank Pain Musculoskeletal: Reports: No Symptoms. Denies: Neck Pain, Shoulder Pain, Arm Pain, Back Pain, Leg Pain Skin: Reports: Other (No evidence of drainage from laceration sites). Denies: Diaphoresis, Bruising Neurological: Reports: No Symptoms. Denies: Confusion, Dizziness, Headache, Numbness, Paresthesia, Seizure, Syncope, Tingling, Weakness Psychiatric: Reports: No Symptoms. Denies: Confusion, Depression, Anxiety, Agitation, Cravings, Hallucinations - Patient Data Vitals - Most Recent: Last Vital Signs Temp 37.3 C 07/05/19 09:31 Pulse 67 07/05/19 09:31 Resp 16 07/05/19 09:31 BP 150/88 H 07/05/19 09:31 Pulse Ox 96 07/05/19 09:31 Vital Signs - 24 hr 07/04/19 07/04/19 07/04/19 17:40 17:54 18:09 Temperature [ 36.8 C Temporal] Pulse, Peripheral Pulse, 118 H 112 H 107 H Peripheral [ Pulse Oximetry] Respiratory 19 21 H 20 Rate Blood Pressure Blood Pressure [Left Upper Arm ] Blood Pressure 137/81 137/84 145/78 H [Right Upper Arm] O2 Sat by Pulse 100 98 99 Oximetry 07/04/19 07/04/19 07/04/19 18:24 18:25 18:39 Temperature [ Temporal] Pulse, 102 H Peripheral Pulse, 109 H 90 Peripheral [ Pulse Oximetry] Respiratory 19 19 Rate Blood Pressure 145/78 H Blood Pressure [Left Upper Arm ] Blood Pressure 157/90 H 154/90 H [Right Upper Arm] O2 Sat by Pulse 99 99 Oximetry 07/04/19 07/04/19 07/04/19 18:58 19:45 20:01 Temperature [ Temporal] Pulse, Peripheral Pulse, 89 85 87 Peripheral [ Pulse Oximetry] Respiratory 16 19 21 H Rate Blood Pressure Blood Pressure [Left Upper Arm ] Blood Pressure 149/87 H 144/84 H 151/94 H [Right Upper Arm] O2 Sat by Pulse 98 99 96 Oximetry 07/04/19 07/04/19 07/04/19 20:16 20:31 22:00 Temperature [ 37.6 C Temporal] Pulse, Peripheral Pulse, 82 91 83 Peripheral [ Pulse Oximetry] Respiratory 18 19 16 Rate Blood Pressure Blood Pressure 144/92 H [Left Upper Arm ] Blood Pressure 150/86 H 147/83 H [Right Upper Arm] O2 Sat by Pulse 97 96 99 Oximetry 07/04/19 07/05/19 07/05/19 22:03 00:00 02:00 Temperature [ 37.3 C 37.0 C Temporal] Pulse, 83 Peripheral Pulse, 76 71 Peripheral [ Pulse Oximetry] Respiratory 16 16 Rate Blood Pressure 144/92 H Blood Pressure 134/89 131/85 [Left Upper Arm ] Blood Pressure [Right Upper Arm] O2 Sat by Pulse 98 97 Oximetry 07/05/19 07/05/19 07/05/19 04:00 06:00 07:11 Temperature [ 37.2 C 37.0 C 36.9 C Temporal] Pulse, Peripheral Pulse, 67 72 65 Peripheral [ Pulse Oximetry] Respiratory 16 16 16 Rate Blood Pressure Blood Pressure 134/86 124/83 135/81 [Left Upper Arm ] Blood Pressure [Right Upper Arm] O2 Sat by Pulse 96 97 97 Oximetry 07/05/19 09:31 Temperature [ 37.3 C Temporal] Pulse, Peripheral Pulse, 67 Peripheral [ Pulse Oximetry] Respiratory 16 Rate Blood Pressure Blood Pressure 150/88 H [Left Upper Arm ] Blood Pressure [Right Upper Arm] O2 Sat by Pulse 96 Oximetry Weight - Most Recent: 68.175 kg I&O - Last 24 hours: Intake & Output 07/04/19 07/05/19 07/05/19 22:59 06:59 14:59 Intake Total 0 Output Total 400 Balance -400 Imaging Impressions - Last 24 hrs: environmental monitoring specialist showed initial sinus tachycardia with very occasional PACs in the emergency room with subsequent normal sinus rhythm in the 70s to 80s with no additional ectopy or arrhythmia. Chest x-ray, portable, on 07/04/19 showed no evidence of pneumothorax, fracture , cardiomegaly, CHF, pulmonary infiltrates, etc. X-rays of the C-spine, complete including oblique views shows no evidence of fracture with moderately advanced spondylosis. CTA of the chest using PE protocol on 07/04/19 was negative for acute PE Preliminary verbal report of noncontrast CT of the head on 06/07/19 was negative for acute changes Lab Results - Last 24 hrs: Laboratory Results - last 24 hr 07/04/19 07/04/19 07/04/19 Range/Units 18:00 18:00 18:00 WBC 11.3 H (4.0-10.2) K/uL RBC 4.53 (4.33-5.41) M/uL Hgb 13.9 (13.1-16.8) g/dL Hct 41.9 (39.0-49.0) % MCV 92.5 (84.0-98.0) fL MCH 30.7 (28.2-33.3) pg MCHC 33.2 (31.7-36.0) g/dL RDW 12.9 (11.2-14.1) % Plt Count 247 (150-350) K/uL Neut % (Auto) 76.6 (45.0-80.0) % Lymph % (Auto) 13.5 (10.0-50.0) % [place] % (Auto) 8.2 (2.0-14.0) % Eos % (Auto) 1.3 (0.0-5.0) % Baso % (Auto) 0.4 (0.0-2.0) % Neut # (Auto) 8.65 H (1.40-7.00) K/uL Lymph # (Auto) 1.52 (0.50-3.50) K/uL [place] # (Auto) 0.93 (0.00-1.00) K/uL Eos # (Auto) 0.15 (0.00-0.50) K/uL Baso # (Auto) 0.04 (0.00-0.20) K/uL PT 10.3 (9.5-12.0) SEC INR 1.0 APTT 19.0 L (21.0-31.3) SEC D-Dimer, Quantitative 1370 H (0-400) ng/mL Sodium (136-145) mmol/L Potassium (3.5-5.1) mmol/L Chloride (98-107) mmol/L Carbon Dioxide (21.0-32.0) mmol/L BUN (7-18) mg/dL Creatinine (0.51-1.17) mg/dL Est Cr Clr Drug Dosing mL/min Estimated GFR (MDRD) mL/min Glucose (74-106) mg/dL Hemoglobin A1c (4.3-5.7) % Lactic Acid (0.4-2.0) mmol/L Uric Acid (2.6-7.2) mg/dL Calcium (8.5-10.1) mg/dL Magnesium (1.8-2.4) mg/dL Total Bilirubin (0.2-1.0) mg/dL AST (15-37) U/L ALT (12-78) U/L Alkaline Phosphatase (46-116) IU/L Creatine Kinase (26-308) U/L Creatine Kinase Index (0.0-2.5) % CK-MB (CK-2) (0.00-3.60) ng/mL Troponin I (0.000-0.056) ng/mL NT-Pro-B Natriuret Pep (0-125) pg/mL Total Protein (6.4-8.2) g/dL Albumin (3.4-5.0) g/dL Triglycerides (30-150) mg/dL Cholesterol (100-200) mg/dL LDL Cholesterol, Calc (0-100) mg/dL HDL Cholesterol (40-60) mg/dL Vitamin B12 (193-986) pg/mL TSH, Ultra Sensitive (0.358-3.740) mIU/mL Specimen Type Urine Color Urine Appearance Urine pH (5.0-9.0) Ur Specific [place] (1.005-1.030) Urine Protein (NEGATIVE) mg/dL Urine Glucose (UA) (NEGATIVE) mg/dL Urine Ketones (NEGATIVE) mg/dL Urine Occult Blood (NEGATIVE) Urine Nitrite (NEGATIVE) Urine Bilirubin (NEGATIVE) Urine Urobilinogen (0.2-1.0) E.U./dL Ur Leukocyte Esterase (NEGATIVE) Urine RBC /HPF Urine WBC /HPF Ur Epithelial Cells /LPF Urine Bacteria (NONE TO FEW) /HPF 07/04/19 07/04/19 07/04/19 Range/Units 18:00 18:00 21:15 WBC (4.0-10.2) K/uL RBC (4.33-5.41) M/uL Hgb (13.1-16.8) g/dL Hct (39.0-49.0) % MCV (84.0-98.0) fL MCH (28.2-33.3) pg MCHC (31.7-36.0) g/dL RDW (11.2-14.1) % Plt Count (150-350) K/uL Neut % (Auto) (45.0-80.0) % Lymph % (Auto) (10.0-50.0) % [place] % (Auto) (2.0-14.0) % Eos % (Auto) (0.0-5.0) % Baso % (Auto) (0.0-2.0) % Neut # (Auto) (1.40-7.00) K/uL Lymph # (Auto) (0.50-3.50) K/uL [place] # (Auto) (0.00-1.00) K/uL Eos # (Auto) (0.00-0.50) K/uL Baso # (Auto) (0.00-0.20) K/uL PT (9.5-12.0) SEC INR APTT (21.0-31.3) SEC D-Dimer, Quantitative (0-400) ng/mL Sodium 145 (136-145) mmol/L Potassium 3.6 (3.5-5.1) mmol/L Chloride 109 H (98-107) mmol/L Carbon Dioxide 23.5 (21.0-32.0) mmol/L BUN 21 H (7-18) mg/dL Creatinine 1.21 H (0.51-1.17) mg/dL Est Cr Clr Drug Dosing 51.13 mL/min Estimated GFR (MDRD) 58 mL/min Glucose 116 H (74-106) mg/dL Hemoglobin A1c (4.3-5.7) % Lactic Acid 2.0 (0.4-2.0) mmol/L Uric Acid 5.2 (2.6-7.2) mg/dL Calcium 8.8 (8.5-10.1) mg/dL Magnesium 1.6 L (1.8-2.4) mg/dL Total Bilirubin 0.3 (0.2-1.0) mg/dL AST 22 (15-37) U/L ALT 20 (12-78) U/L Alkaline Phosphatase 144 H (46-116) IU/L Creatine Kinase 236 (26-308) U/L Creatine Kinase Index 0.8 (0.0-2.5) % CK-MB (CK-2) 1.90 (0.00-3.60) ng/mL Troponin I 0.020 (0.000-0.056) ng/mL NT-Pro-B Natriuret Pep 338 H (0-125) pg/mL Total Protein 7.2 (6.4-8.2) g/dL Albumin 3.6 (3.4-5.0) g/dL Triglycerides (30-150) mg/dL Cholesterol (100-200) mg/dL LDL Cholesterol, Calc (0-100) mg/dL HDL Cholesterol (40-60) mg/dL Vitamin B12 (193-986) pg/mL TSH, Ultra Sensitive 2.895 (0.358-3.740) mIU/mL Specimen Type Urincc Urine Color Light yellow Urine Appearance Clear Urine pH 6.5 (5.0-9.0) Ur Specific [place] 1.010 (1.005-1.030) Urine Protein Negative (NEGATIVE) mg/dL Urine Glucose (UA) Negative (NEGATIVE) mg/dL Urine Ketones Negative (NEGATIVE) mg/dL Urine Occult Blood Trace-intact H (NEGATIVE) Urine Nitrite Negative (NEGATIVE) Urine Bilirubin Negative (NEGATIVE) Urine Urobilinogen 0.2 (0.2-1.0) E.U./dL Ur Leukocyte Esterase Negative (NEGATIVE) Urine RBC 0-5 /HPF Urine WBC 0-5 /HPF Ur Epithelial Cells Rare /LPF Urine Bacteria Not seen (NONE TO FEW) /HPF 07/04/19 07/05/19 07/05/19 Range/Units 22:10 07:26 07:26 WBC 9.5 (4.0-10.2) K/uL RBC 4.35 (4.33-5.41) M/uL Hgb 13.3 (13.1-16.8) g/dL Hct 40.5 (39.0-49.0) % MCV 93.1 (84.0-98.0) fL MCH 30.6 (28.2-33.3) pg MCHC 32.8 (31.7-36.0) g/dL RDW 13.3 (11.2-14.1) % Plt Count 226 (150-350) K/uL Neut % (Auto) 74.9 (45.0-80.0) % Lymph % (Auto) 12.9 (10.0-50.0) % [place] % (Auto) 11.1 (2.0-14.0) % Eos % (Auto) 0.8 (0.0-5.0) % Baso % (Auto) 0.3 (0.0-2.0) % Neut # (Auto) 7.12 H (1.40-7.00) K/uL Lymph # (Auto) 1.23 (0.50-3.50) K/uL [place] # (Auto) 1.06 H (0.00-1.00) K/uL Eos # (Auto) 0.08 (0.00-0.50) K/uL Baso # (Auto) 0.03 (0.00-0.20) K/uL PT (9.5-12.0) SEC INR APTT (21.0-31.3) SEC D-Dimer, Quantitative 727 H (0-400) ng/mL Sodium (136-145) mmol/L Potassium (3.5-5.1) mmol/L Chloride (98-107) mmol/L Carbon Dioxide (21.0-32.0) mmol/L BUN (7-18) mg/dL Creatinine (0.51-1.17) mg/dL Est Cr Clr Drug Dosing mL/min Estimated GFR (MDRD) mL/min Glucose (74-106) mg/dL Hemoglobin A1c (4.3-5.7) % Lactic Acid (0.4-2.0) mmol/L Uric Acid (2.6-7.2) mg/dL Calcium (8.5-10.1) mg/dL Magnesium (1.8-2.4) mg/dL Total Bilirubin (0.2-1.0) mg/dL AST (15-37) U/L ALT (12-78) U/L Alkaline Phosphatase (46-116) IU/L Creatine Kinase 658 H (26-308) U/L Creatine Kinase Index 0.4 (0.0-2.5) % CK-MB (CK-2) 2.70 (0.00-3.60) ng/mL Troponin I 0.063 H* (0.000-0.056) ng/mL NT-Pro-B Natriuret Pep (0-125) pg/mL Total Protein (6.4-8.2) g/dL Albumin (3.4-5.0) g/dL Triglycerides (30-150) mg/dL Cholesterol (100-200) mg/dL LDL Cholesterol, Calc (0-100) mg/dL HDL Cholesterol (40-60) mg/dL Vitamin B12 (193-986) pg/mL TSH, Ultra Sensitive (0.358-3.740) mIU/mL Specimen Type Urine Color Urine Appearance Urine pH (5.0-9.0) Ur Specific [place] (1.005-1.030) Urine Protein (NEGATIVE) mg/dL Urine Glucose (UA) (NEGATIVE) mg/dL Urine Ketones (NEGATIVE) mg/dL Urine Occult Blood (NEGATIVE) Urine Nitrite (NEGATIVE) Urine Bilirubin (NEGATIVE) Urine Urobilinogen (0.2-1.0) E.U./dL Ur Leukocyte Esterase (NEGATIVE) Urine RBC /HPF Urine WBC /HPF Ur Epithelial Cells /LPF Urine Bacteria (NONE TO FEW) /HPF 07/05/19 07/05/19 Range/Units 07:26 07:26 WBC (4.0-10.2) K/uL RBC (4.33-5.41) M/uL Hgb (13.1-16.8) g/dL Hct (39.0-49.0) % MCV (84.0-98.0) fL MCH (28.2-33.3) pg MCHC (31.7-36.0) g/dL RDW (11.2-14.1) % Plt Count (150-350) K/uL Neut % (Auto) (45.0-80.0) % Lymph % (Auto) (10.0-50.0) % [place] % (Auto) (2.0-14.0) % Eos % (Auto) (0.0-5.0) % Baso % (Auto) (0.0-2.0) % Neut # (Auto) (1.40-7.00) K/uL Lymph # (Auto) (0.50-3.50) K/uL [place] # (Auto) (0.00-1.00) K/uL Eos # (Auto) (0.00-0.50) K/uL Baso # (Auto) (0.00-0.20) K/uL PT (9.5-12.0) SEC INR APTT (21.0-31.3) SEC D-Dimer, Quantitative (0-400) ng/mL Sodium 145 (136-145) mmol/L Potassium 4.0 (3.5-5.1) mmol/L Chloride 110 H (98-107) mmol/L Carbon Dioxide 25.4 (21.0-32.0) mmol/L BUN 19 H (7-18) mg/dL Creatinine 1.16 (0.51-1.17) mg/dL Est Cr Clr Drug Dosing 51.43 mL/min Estimated GFR (MDRD) > 60 mL/min Glucose 99 (74-106) mg/dL Hemoglobin A1c 5.4 (4.3-5.7) % Lactic Acid (0.4-2.0) mmol/L Uric Acid (2.6-7.2) mg/dL Calcium 8.6 (8.5-10.1) mg/dL Magnesium (1.8-2.4) mg/dL Total Bilirubin 0.6 (0.2-1.0) mg/dL AST 29 (15-37) U/L ALT 19 (12-78) U/L Alkaline Phosphatase 119 H (46-116) IU/L Creatine Kinase 626 H (26-308) U/L Creatine Kinase Index 0.3 (0.0-2.5) % CK-MB (CK-2) 1.80 (0.00-3.60) ng/mL Troponin I 0.038 (0.000-0.056) ng/mL NT-Pro-B Natriuret Pep 1339 H (0-125) pg/mL Total Protein 6.8 (6.4-8.2) g/dL Albumin 3.3 L (3.4-5.0) g/dL Triglycerides 33 (30-150) mg/dL Cholesterol 151 (100-200) mg/dL LDL Cholesterol, Calc 80 (0-100) mg/dL HDL Cholesterol 64 H (40-60) mg/dL Vitamin B12 415 (193-986) pg/mL TSH, Ultra Sensitive (0.358-3.740) mIU/mL Specimen Type Urine Color Urine Appearance Urine pH (5.0-9.0) Ur Specific [place] (1.005-1.030) Urine Protein (NEGATIVE) mg/dL Urine Glucose (UA) (NEGATIVE) mg/dL Urine Ketones (NEGATIVE) mg/dL Urine Occult Blood (NEGATIVE) Urine Nitrite (NEGATIVE) Urine Bilirubin (NEGATIVE) Urine Urobilinogen (0.2-1.0) E.U./dL Ur Leukocyte Esterase (NEGATIVE) Urine RBC /HPF Urine WBC /HPF Ur Epithelial Cells /LPF Urine Bacteria (NONE TO FEW) /HPF Prolactin level pending Urine for culture and sensitivity results pending STEPHIE Results - Last 24 hrs: Microbiology 07/04/19 08:50 Stool Occult Blood (STEPHIE) - Final Stool / Feces NEGATIVE OCCULT BLOOD REFERENCE RANGE: NEGATIVE Med Orders - Current: Current Medications Acetaminophen (Tylenol) 650 mg PO Q4H PRN PRN Reason: Pain Enoxaparin Sodium (Lovenox) 80 mg SUBCUT Q24H [facility] Last Admin: 07/04/19 23:26 Dose: 80 mg Magnesium Oxide (Magnesium Oxide) 400 mg PO BEDTIME ESTELA Last Admin: 07/04/19 22:03 Dose: 400 mg Metoprolol Succinate (Toprol Xl) 25 mg PO BEDTIME ESTELA Last Admin: 07/04/19 22:03 Dose: 25 mg Sodium Chloride (Saline Flush) 10 ml FLUSH ASDIRECTED PRN PRN Reason: Keep Vein Open Last Admin: 07/04/19 18:39 Dose: 10 ml Sodium Chloride (Saline Flush) 10 ml FLUSH Q12HR PRN PRN Reason: Keep Vein Open Temazepam (Restoril) 15 mg PO BEDTIME PRN PRN Reason: Insomnia Discontinued Medications Diphtheria/Tetanus/Acell Pertussis (Adacel) 0.5 ml IM .ONCE ONE Stop: 07/04/19 21:28 Last Admin: 07/04/19 22:04 Dose: 0.5 ml Famotidine (Pepcid) 40 mg IVPUSH ONETIME ONE Stop: 07/04/19 18:12 Last Admin: 07/04/19 18:25 Dose: 40 mg Influenza Virus Vaccine (Pharmacy To Dose - Influenza Vaccine) 1 each IM ONETIME ONE Stop: 07/04/19 21:28 Influenza Virus Vaccine (Fluzone High-Dose 2019-20 Syringe) 180 mcg IM .ONCE ONE Stop: 07/04/19 21:46 Iopamidol (Isovue-370 (76%)) 100 ml IVPUSH ONETIME ONE Stop: 07/04/19 18:59 Last Admin: 07/04/19 19:57 Dose: 100 ml Lidocaine HCl (Xylocaine-Mpf 1%) 5 ml INJECT ONETIME ONE Stop: 07/04/19 18:16 Last Admin: 07/04/19 18:24 Dose: 5 ml Magnesium Oxide (Magnesium Oxide) 400 mg PO BEDTIME ESTELA Metoprolol Tartrate (Lopressor) 2.5 mg IVPUSH ONETIME ONE Stop: 07/04/19 18:12 Last Admin: 07/04/19 18:25 Dose: 2.5 mg Pneumococcal Polyvalent Vaccine (Pneumovax 23) 0.5 ml IM .ONCE ONE Stop: 07/04/19 21:28 - Exam Quality Assessment: Reports: DVT Prophylaxis (Lovenox). Denies: Supplemental Oxygen, Central Line/PICC, Urine Catheter, Skin Breakdown, Restraints General: Reports: Alert, Oriented, Cooperative, No Acute Distress HEENT: Reports: Pupils Equal, Pupils Reactive, EOMI, Mucous Membr. Moist/[place], Other (Moderate to severe bilateral presbycusis) Neck: Reports: Supple, Trachea Midline, No JVD, No Thyromegaly, Carotid Bruit ( Bilateral carotid bruitsmild). Denies: Lymphadenopathy Lungs: Reports: Clear to Auscultation, Normal Respiratory Effort. Denies: Rub Cardiovascular: Reports: Regular Rate, Regular Rhythm, No Murmurs. Denies: Gallops, Rubs GI/Abdominal Exam: Normal Bowel Sounds, Soft, Non-Tender, No Organomegaly, No Distention, No Abnormal Bruit, No Mass, Pelvis Stable. No: Guarding (Male) Exam: Deferred Rectal (Males) Exam: Deferred Back Exam: Reports: Normal Inspection, Full Range of Motion. Denies: CVA Tenderness (L), CVA Tenderness (R), Muscle Spasm Extremities: Normal Inspection, Normal Range of Motion, Non-Tender, No Pedal Edema, Normal Capillary Refill. No: Matilde's Sign Skin: Reports: Other (Superficial laceration over the right upper lip and right lateral eyebrow with no evidence of infection. Laceration repair site of right upper lip shows no evidence of infection with sutures [address]) Wound/Incisions: Reports: Healing Well, No Drainage Neurological: Reports: No New Focal Deficit Psy/Mental Status: Reports: Alert, Normal Affect, Normal Mood. Denies: Agitated , Hallucinations, Withdrawal Symptoms EKG INTERPRETATION EKG Date: 07/05/19 Time: 07:15 Rhythm: NSR Rate (Beats/Min): 67 [place]: Normal (Left cardiac axis) P-Wave: Enlarged (Mild diffuse biphasic P waves with poor R-wave progression in the anterior leads) QRS: Normal (0.09 seconds) ST-T: Normal (T-wave inversion in leads V1 and 3) QT: Normal IN/PQ Interval: 0.13 seconds representing a short IN interval with no delta waves noted. Comparison: No Change (Since EKG at 22:58 hours on 07/04/19) EKG Interpretation Comments: 1. No acute ischemic changes 2. Short IN interval 3. Left Atrial enlargement
[2019-07-05] MEDS ORDERED: Potassium Chloride 20 MEQ Tab.ER PO ONE (09:51)
[2019-07-05] MEDS: Sodium Chloride 0.9% 10 ML Syringe FLUSH PRN (10:08)
--- NOTE | 2019-07-05 11:48 | PCM.SN ---
- Free Text/Narrative Note: Note preliminary verbal report from echocardiogram tech indicates minimal diffuse valvular disease with ejection fraction of 55?60 percent and no other gross abnormalities. In addition, note that the patient refused recommended influenza and Prevnar immunizations prior to transfer.
[2019-07-05] MEDS ORDERED: Magnesium Oxide 400 MG Tab PO SCH (20:00)
== END 2019-07-05 11:20 ==
LOC: LL.ED 17:39 → LL.MS 21:03 → UNDOADMOB 21:03 → LL.MS 21:04
PROVIDERS: ADMIT Family Medicine; ATTEND Family Medicine
DX: R55 Syncope and collapse (principal); S00.83XA Contusion of other part of head, initial encounter; S01.511A Laceration without foreign body of lip, initial encounter; R79.89 Other specified abnormal findings of blood chemistry; I10 Essential (primary) hypertension; E83.42 Hypomagnesemia; I49.1 Atrial premature depolarization; M54.2 Cervicalgia; M19.90 Unspecified osteoarthritis, unspecified site; N28.9 Disorder of kidney and ureter, unspecified; N40.1 Benign prostatic hyperplasia with lower urinary tract symptoms; R35.0 Frequency of micturition; E88.09 Other disorders of plasma-protein metabolism, not elsewhere classified; W18.09XA Striking against other object with subsequent fall, initial encounter; Y93.89 Activity, other specified; Z87.891 Personal history of nicotine dependence
CPT/HCPCS: 36415; 70450; 71045; 71275; 72050; 80053; 80061; 81001; 82272; 82550; 82553; 82607; 83036; 83605; 83735; 83880; 84146; 84443; 84484; 84550; 85025; 85379; 85610; 85730; 87086; 90471; 90715; 93005; 93306; A9270-GY; J1650; J1940; J2001; J3490; Q9967

== ENCOUNTER 2021-02-14 23:01 | Emergency (ER) | payer MEDICARE, OTHER ==
[2021-02-14] MEDS ORDERED: Sodium Chloride 0.9% 10 ML Syringe FLUSH PRN (23:18)
[2021-02-14] MEDS ORDERED: Metoprolol Tartrate 5 MG/5 ML SDV IVPUSH ONE (23:18)
[2021-02-14 23:46] LABS: ANION GAP 13.7 meq/L (7-15)
--- NOTE | 2021-02-14 23:52 | EDM.PDOC ---
ED HPI GENERAL MEDICAL PROBLEM - General Chief Complaint: General Stated Complaint: FEELS LIKE PASSING OUT Time Seen by Provider: 02/14/21 23:20 Source of Information: Reports: Patient History Limitations: Reports: No Limitations - History of Present Illness INITIAL COMMENTS - FREE TEXT/NARRATIVE: Patient states that has has not been feeling not well for the last week. Nothing specific, but fatigued, no chest pain or shortness of breath, no appetite and thinks he might have lost his sense of smell and taste. NO covid vaccine or illness. Has not had a cough or chest pain. He has had intermittent episodes of feeling unwell over the last week and has rested when they happen. Has been taking his 12.5 mg of metoprolol in the evening. He was transferred in June to [place] for cardiac evaluation, negative heart cath, holter monitor revealed lost of supraventricular beats. Tonight he felt lightheaded and worse so came in. AT triage found to have runs of SVT at 220. vagal maneuver drops rate to 120. Alert, answering questions and ambulatory. Onset: Sudden Duration: Getting Worse, Intermittent Location: Reports: Chest Associated Symptoms: Reports: Loss of Appetite, Malaise, Other (fatigue, feeling unwell) - Related Data Allergies Allergy/AdvReac Type Severity Reaction Status Date / Time No Known Allergies Allergy Verified 02/15/21 00:03 Home Meds: Home Meds Metoprolol Succinate 12.5 mg PO DAILY 02/14/21 [History] predniSONE 20 mg PO DAILY 02/14/21 [History] Past Medical History HEENT History: Reports: Cataract, Hard of Hearing, Impaired Vision, Other (See Below) Other HEENT History: He wears glasses. Beginning cataracts with no surgery to this point. Moderate to severe presbycusis with no current therapy. Cardiovascular History: Reports: Hypertension, Other (See Below) Other Cardiovascular History: Hypertension with no previous medical therapy to this point. Patient does not know his cholesterol status. Respiratory History: Reports: None Gastrointestinal History: Reports: Hepatitis, Other (See Below) Other Gastrointestinal History: Unknown type of hepatitis with jaundice at about age 11 Genitourinary History: Reports: BPH Musculoskeletal History: Reports: Arthritis, Osteoarthritis Neurological History: Reports: None Psychiatric History: Reports: None Hematologic History: Reports: None Immunologic History: Reports: None Dermatologic History: Reports: None - Infectious Disease History Infectious Disease History: Reports: Measles, Mumps - Past Surgical History Head Surgeries/Procedures: Reports: None HEENT Surgical History: Reports: Oral Surgery, Other (See Below) Other HEENT Surgeries/Procedures: Multiple teeth extractions Respiratory Surgical History: Reports: None GI Surgical History: Reports: Hernia, Inguinal, Other (See Below) Other GI Surgeries/Procedures: Left inguinal hernia repair in 2016. Male Surgical History: Reports: None Endocrine Surgical History: Reports: None Neurological Surgical History: Reports: None Musculoskeletal Surgical History: Reports: None Oncologic Surgical History: Reports: None Dermatological Surgical History: Reports: None Social & Family History - Family History HEENT: Reports: None Cardiac: Reports: Hypertension, Other (See Below) Other Cardiac Family History: Sister with hypertension. Respiratory: Reports: COPD, Other (See Below) Other Respiratory Family Hisory: Father with fatal COPD at age 55 with history of tobacco use. GI: Reports: None : Reports: None OBGYN: Reports: None Musculoskeletal: Reports: None Neurological: Reports: CVA, Other (See Below) Other Neurological Family History: Mother with fatal CVA in her 70s. Sister with fatal CVA at age 63. 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 Denies: Eye Pain, Sinus Problem, Throat Pain, Throat Swelling, Vision Change Respiratory: Denies: Cough, Sputum Cardiovascular: Reports: Lightheadedness, Palpitations. Denies: Chest Pain, Blood Pressure Problem, Claudication Endocrine: Reports: No Symptoms GI/Abdominal: Reports: No Symptoms. Denies: Abdominal Pain, Diarrhea, Difficulty Swallowing, Nausea, Vomiting : Reports: No Symptoms. Denies: Discharge, Dysuria, Frequency Musculoskeletal: Reports: No Symptoms. Denies: Muscle Pain, Muscle Stiffness Skin: Reports: No Symptoms. Denies: Dryness, Bruising Neurological: Reports: Dizziness Psychiatric: Reports: No Symptoms ED EXAM, GENERAL - Physical Exam Exam: See Below Exam Limited By: No Limitations General Appearance: Alert, WD/WN, No Apparent Distress Eye Exam: Bilateral Eye: EOMI, Normal Inspection, PERRL Ears: Normal External Exam, Normal Canal Ear Exam: Bilateral Ear: Auricle Normal, TM normal Nose: Normal Inspection, Normal Mucosa Throat/Mouth: Normal Inspection, Normal Lips, Normal Teeth, Normal Voice Head: Atraumatic Neck: Normal Inspection, Supple Respiratory/Chest: No Respiratory Distress, Lungs Clear, Normal Breath Sounds, Chest Non-Tender Cardiovascular: Normal Peripheral Pulses, No Edema, Other (rate of 200 intermittently, PVC, regular) GI/Abdominal: Normal Bowel Sounds, Soft (Male) Exam: No Hernia, Normal Inspection, Normal Prostate Rectal (Males) Exam: Normal Exam, Normal Rectal Tone, Prostate Normal Back Exam: Normal Inspection, Full Range of Motion Extremities: Normal Inspection, Normal Range of Motion, Non-Tender, No Pedal Edema, Normal Capillary Refill #1 Interpretation EKG Date: 02/15/21 Time: 01:20 Rhythm: NSR Rate (Beats/Min): 120 [place]: Normal P-Wave: Present QRS: Wide ST-T: Other (non specific due to rate, NOT STEMI) QT: Prolonged (520) #2 Interpretation EKG Date: 02/15/21 Time: 23:41 Rhythm: NSR Rate (Beats/Min): 80 [place]: Normal P-Wave: Present QRS: Normal ST-T: Normal QT: Normal Comparison: Change From Previous EKG Course - Vital Signs Last Recorded V/S: Last Vital Signs Temp 36.4 C 02/14/21 23:05 Pulse 79 02/14/21 23:59 Resp 15 02/14/21 23:59 BP 131/79 02/14/21 23:59 Pulse Ox 98 02/14/21 23:59 - Orders/Labs/Meds Orders: Active Orders 24 hr Category Date Time Status EKG Documentation Completion [RC] ASDIRECTED Care 02/14/21 23:19 Active EKG Documentation Completion [RC] ASDIRECTED Care 02/14/21 23:33 Active Peripheral IV Care [RC] . DIRECTED Care 02/14/21 23:18 Active Chest 1V Frontal [CR] Stat Exams 02/14/21 23:20 Taken Sodium Chloride 0.9% [Normal Saline] 1,000 ml Med 02/15/21 00:02 Active IV .BOLUS Sodium Chloride 0.9% [Normal Saline] 1,000 ml Med 02/15/21 00:15 Active IV ASDIRECTED Sodium Chloride 0.9% [Saline Flush] Med 02/14/21 23:18 Active 10 ml FLUSH ASDIRECTED PRN Peripheral IV Insertion Adult [OM.PC] Routine Oth 02/14/21 23:18 Ordered Medication Orders Sodium Chloride (Normal Saline) 1,000 mls @ 999 mls/hr IV .BOLUS ONE Stop: 02/15/21 01:02 Last Admin: 02/15/21 00:04 Dose: 999 mls/hr Documented by: ANITA Sodium Chloride (Normal Saline) 1,000 mls @ 125 mls/hr IV ASDIRECTED ESTELA Sodium Chloride (Sodium Chloride 0.9% 10 Ml Syringe) 10 ml FLUSH ASDIRECTED PRN PRN Reason: Keep Vein Open Labs: Laboratory Tests 02/14/21 02/14/21 02/14/21 Range/Units 23:10 23:10 23:20 WBC 6.2 (4.0-10.2) K/uL RBC 4.81 (4.33-5.41) M/uL Hgb 15.0 D (13.1-16.8) g/dL Hct 43.6 (39.0-49.0) % MCV 90.6 (84.0-98.0) fL MCH 31.2 (28.2-33.3) pg MCHC 34.4 (31.7-36.0) g/dL RDW 13.1 (11.2-14.1) % Plt Count 201 (150-350) K/uL Neut % (Auto) 72.5 (45.0-80.0) % Lymph % (Auto) 15.4 (10.0-50.0) % [place] % (Auto) 11.7 (2.0-14.0) % Eos % (Auto) 0.2 (0.0-5.0) % Baso % (Auto) 0.2 (0.0-2.0) % Neut # (Auto) 4.52 (1.40-7.00) K/uL Lymph # (Auto) 0.96 (0.50-3.50) K/uL [place] # (Auto) 0.73 (0.00-1.00) K/uL Eos # (Auto) 0.01 (0.00-0.50) K/uL Baso # (Auto) 0.01 (0.00-0.20) K/uL INR Sodium 139 (136-145) mmol/L Potassium 3.2 L (3.5-5.1) mmol/L Chloride 106 (98-107) mmol/L Carbon Dioxide 22.5 (21.0-32.0) mmol/L Anion Gap 13.7 (7-15) meq/L BUN 24 H (7-18) mg/dL Creatinine 1.64 H (0.51-1.17) mg/dL Est Cr Clr Drug Dosing 35.34 mL/min Estimated GFR (MDRD) 41 mL/min Glucose 115 H (70-99) mg/dL Calcium 8.1 L (8.5-10.1) mg/dL Magnesium 1.8 (1.8-2.4) mg/dL Total Bilirubin 0.6 (0.2-1.0) mg/dL AST 25 (15-37) U/L ALT 20 (12-78) U/L Alkaline Phosphatase 135 H (46-116) IU/L Troponin I High Sens 10 (<=76) ng/L NT-Pro-B Natriuret Pep 230 H (0-125) pg/mL Total Protein 7.4 (6.4-8.2) g/dL Albumin 3.3 L (3.4-5.0) g/dL SARS-CoV-2 RNA (LEENA) Positive H (NEGATIVE) 02/14/21 Range/Units 23:43 WBC (4.0-10.2) K/uL RBC (4.33-5.41) M/uL Hgb (13.1-16.8) g/dL Hct (39.0-49.0) % MCV (84.0-98.0) fL MCH (28.2-33.3) pg MCHC (31.7-36.0) g/dL RDW (11.2-14.1) % Plt Count (150-350) K/uL Neut % (Auto) (45.0-80.0) % Lymph % (Auto) (10.0-50.0) % [place] % (Auto) (2.0-14.0) % Eos % (Auto) (0.0-5.0) % Baso % (Auto) (0.0-2.0) % Neut # (Auto) (1.40-7.00) K/uL Lymph # (Auto) (0.50-3.50) K/uL [place] # (Auto) (0.00-1.00) K/uL Eos # (Auto) (0.00-0.50) K/uL Baso # (Auto) (0.00-0.20) K/uL INR 1.1 Sodium (136-145) mmol/L Potassium (3.5-5.1) mmol/L Chloride (98-107) mmol/L Carbon Dioxide (21.0-32.0) mmol/L Anion Gap (7-15) meq/L BUN (7-18) mg/dL Creatinine (0.51-1.17) mg/dL Est Cr Clr Drug Dosing mL/min Estimated GFR (MDRD) mL/min Glucose (70-99) mg/dL Calcium (8.5-10.1) mg/dL Magnesium (1.8-2.4) mg/dL Total Bilirubin (0.2-1.0) mg/dL AST (15-37) U/L ALT (12-78) U/L Alkaline Phosphatase (46-116) IU/L Troponin I High Sens (<=76) ng/L NT-Pro-B Natriuret Pep (0-125) pg/mL Total Protein (6.4-8.2) g/dL Albumin (3.4-5.0) g/dL SARS-CoV-2 RNA (LEENA) (NEGATIVE) Meds: Medications Generic Name Dose Route Start Last Admin Trade Name Freq PRN Reason Stop Dose Admin Sodium Chloride 1,000 mls @ 999 mls/hr 02/15/21 00:02 02/15/21 00:04 Normal Saline IV 02/15/21 01:02 999 mls/hr .BOLUS ONE Administration Sodium Chloride 1,000 mls @ 125 mls/hr 02/15/21 00:15 Normal Saline IV ASDIRECTED ESTELA Sodium Chloride 10 ml 02/14/21 23:18 Sodium Chloride 0.9% 10 Ml Syringe FLUSH ASDIRECTED PRN Keep Vein Open Discontinued Medications Generic Name Dose Route Start Last Admin Trade Name Shari PRN Reason Stop Dose Admin Metoprolol Tartrate 5 mg 02/14/21 23:18 02/14/21 23:53 Metoprolol Tartrate 5 Mg/5 Ml Sdv IVPUSH 02/14/21 23:19 5 mg ONETIME ONE Administration Potassium Chloride 40 meq 02/14/21 23:55 02/15/21 00:02 Potassium Chloride 20 Meq Tab.Er PO 02/14/21 23:56 40 meq ONETIME ONE Administration Sodium Bicarbonate 5 meq 02/14/21 23:18 Sodium Bicarbonate 4.2% 5 Meq/10 Ml Syringe IVPUSH 02/14/21 23:19 ONETIME ONE Sodium Bicarbonate 50 meq 02/14/21 23:54 02/14/21 23:55 Sodium Bicarbonate 8.4% 50 Meq/50 Ml Syringe IVPUSH 02/14/21 23:55 50 meq ONETIME ONE Administration - Radiology Interpretation Free Text/Narrative:: normal chest x-ray, interpreted by author. no acute noted - Re-Assessments/Exams Free Text/Narrative Re-Assessment/Exam: 02/14/21 23:59 Patient is in intermittant svt rate of 220, then with vagal down to 110. many PVC. IV was started, lopressor 5 mg Ivp slow given. rate normalizes at 85, one amp of bicarb given IVP. Will check labs, covid for the loss of taste. chest xray. hypokalemia noted 40 meq potassium given po. normal saline infusing. Chest x-ray without concern. 02/15/21 00:15 Call to [facility] call for transfer. Patient is positive for Covid [address]. [address] Lebron accepts 02/15/21 00:41 Last Vital Signs Temp 36.4 C 02/14/21 23:05 Pulse 79 02/14/21 23:59 Resp 15 02/14/21 23:59 BP 131/79 02/14/21 23:59 Pulse Ox 98 02/14/21 23:59 Departure - Departure Time of Disposition: 00:14 Disposition: DC/Tfer to Acute Hospital 02 Clinical Impression: Paroxysmal SVT (supraventricular tachycardia), Hypokalemia, COVID-19 - Discharge Information Referrals: Ana Laura Graves PA-C [Primary Care Provider] - Forms: ED Department Discharge, Interfacility Transfer [facility] Sepsis Event Note (ED) - Focused Exam Vital Signs: Vital Signs Temp Pulse Pulse Resp BP BP Pulse Ox 02/14/21 23:59 79 15 131/79 98 02/14/21 23:53 190 H 130/79 02/14/21 23:35 79 15 130/80 98 02/14/21 23:20 77 15 117/77 98 02/14/21 23:05 36.4 C 126 H 15 153/75 H 95 - My Orders Last 24 Hours: My Active Orders 02/14/21 23:18 Peripheral IV Care [RC] . DIRECTED Sodium Chloride 0.9% [Saline Flush] 10 ml FLUSH ASDIRECTED PRN Peripheral IV Insertion Adult [OM.PC] Routine 02/14/21 23:19 EKG Documentation Completion [RC] ASDIRECTED 02/14/21 23:20 Chest 1V Frontal [CR] Stat 02/14/21 23:33 EKG Documentation Completion [RC] ASDIRECTED 02/15/21 00:02 Sodium Chloride 0.9% [Normal Saline] 1,000 ml IV .BOLUS 02/15/21 00:15 Sodium Chloride 0.9% [Normal Saline] 1,000 ml IV ASDIRECTED - Assessment/Plan Last 24 Hours: My Active Orders 02/14/21 23:18 Peripheral IV Care [RC] . DIRECTED Sodium Chloride 0.9% [Saline Flush] 10 ml FLUSH ASDIRECTED PRN Peripheral IV Insertion Adult [OM.PC] Routine 02/14/21 23:19 EKG Documentation Completion [RC] ASDIRECTED 02/14/21 23:20 Chest 1V Frontal [CR] Stat 02/14/21 23:33 EKG Documentation Completion [RC] ASDIRECTED 02/15/21 00:02 Sodium Chloride 0.9% [Normal Saline] 1,000 ml IV .BOLUS 02/15/21 00:15 Sodium Chloride 0.9% [Normal Saline] 1,000 ml IV ASDIRECTED
[2021-02-14] MEDS ORDERED: Sodium Bicarbonate 8.4% 50 MEQ/50 ML Syringe IVPUSH ONE (23:54)
[2021-02-14] MEDS ORDERED: Potassium Chloride 20 MEQ Tab.ER PO ONE (23:55)
[2021-02-15] VITALS: PULSE 79
[2021-02-15] MEDS ORDERED: Sodium Chloride 0.9% 1,000 ML IV ONE (00:02)
[2021-02-15] MEDS ORDERED: Sodium Chloride 0.9% 1,000 ML IV SCH (00:15)
[2021-02-15 01:04] VITALS: BP 134/75
== END 2021-02-15 01:30 ==
LOC: LL.ED 23:01
DX: U07.1 COVID-19 (principal); E87.6 Hypokalemia; I47.1 Supraventricular tachycardia; I10 Essential (primary) hypertension; Z79.899 Other long term (current) drug therapy
CPT/HCPCS: 36415; 71045; 80053; 83735; 83880; 84484; 85025; 85610; 93005; 93010; 96374; 96375; 99284; 99285-25; A9270-GY; J3490; J7030; U0002